=== PATIENT | male | born 1940 | race Caucasian/White ===

== ENCOUNTER → 2016-09-28 | Day surgery (SDC) | payer MEDICARE ==
[~2016-09-28] MED LIST: CARV3.125 PO; EFFE150C PO; FURO1TAB60 PO; GENTAMICIN SULFATE 80 MG/2 ML VIAL ONE; GLIP5TAB8 PO; LACTATED RINGER'S 1000 ML INJ 1,000 ML ONE; LIPI20TA PO; LOSA50TA PO; METF1000 PO; MIDAZOLAM HCL 2 MG/2 ML VIAL ONE; MULT1TAB84 PO; NITR0.4S SL; OMEGCAP PO; OMEP20TA PO; ONDANSETRON HCL 4 MG/2 ML VIAL IV PUSH ONE; PIOG45TA3 PO; POTA-163 PO; PROPOFOL 200 MG/20 ML AMP IV ONE; TAMS0.4C4 PO; WARF-20 PO; WARF-58 PO
--- NOTE | 2016-09-28 15:49 | TN ---
cc: ELKIN ROGERS M.D. 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 (TURBT)(CPT code 20029) INDICATIONS Mr. López 76-year-old gentleman had painless gross hematuria on part evaluation was found to have two papillary tumors located in proximity to the right ureteral orifice. He presents now for definitive resection and diagnosis. 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 There is just proximal to the most proximal orifice, there is a papillary tumor, in close proximity and then just on almost on top of the distal ureteral orifice is another papillary tumor. There is some suspicious area just adjacent to the tumor but appears that the ureteral orifices are spared. The bladder itself is pretty unremarkable. There is no additional tumors, abnormal mucosa, No stones or diverticula noted. PROCEDURE Procedure as well as risks and benefits were explained to the patient. Informed consent was obtained. The patient was taken major operative theater where he was placed in supine position. The patient was identified as well as the operative site. A universal time-out was performed in standard fashion. At this time general anesthetic and prophylactic intravenous antibiotics consisting of gentamicin 80 mg was administered after adequate anesthetic he was placed in low dorsolithotomy position, prepped and draped usual sterile fashion. At this time 21 Russian cystoscope with a 30 lens was inserted into the urethra and bladder with the above findings, the 30 degree lens was exchanged for a 70 degree lens. The entire bladder was systematically surveyed. At this time using rigid biopsy forceps. Care was taken to resect the tumors involved as well as the base of the tumors and sent separately for final pathological evaluation. A Bugby probe was used to judiciously fulgurate. 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 After confirming hemostasis the bladder was decompressed cystoscope removed. The patient tolerated procedure well, reversed from anesthetic without difficulty and transferred to the recovery room in stable condition to be discharged home when criteria is met. There are no obvious complications. Photo documentation was obtained. MD Celia Lafleur /2:13 PM /3:43 PM
== END | disposition home or self-care (01) ==
LOC: ESDC 10:18
PROVIDERS: ATTEND Urology
DX: D41.4 Neoplasm of uncertain behavior of bladder (principal)
CPT/HCPCS: 00912; 52234; 88307; J1580; J2250; J2405; J3010; J7120; 88305